=== PATIENT | female | born 1990 | race Two or more races ===

== ENCOUNTER 2018-02-19 22:25 | Emergency (ER) | payer BC ==
[~2018-02-19] VITALS: Ht 157.5 cm; Wt 86.2 kg
[2018-02-19 22:37] VITALS: BP 146/97
[2018-02-19] MEDS ORDERED: HYDR-3164 PO (23:24)
--- NOTE | 2018-02-19 23:25 | PHYS DOC ---
Past Medical History Past Medical History: No Pertinent History Alcohol Use: None Drug Use: None Adult General Chief Complaint Chief Complaint: DENTAL PROBLEM HPI HPI Patient is a 28 year old Female who presents with patient has an upper right molar with dental caries and the pain started to get worse yesterday. She's been trying to take ibuprofen and the pain is still 10 out of 10. States it is radiating up into her ear. She states she has no set tenderness. No known drug allergies. Review of Systems Review of Systems Constitutional: Denies fever or chills [] Eyes: Denies change in visual acuity, redness, or eye pain [] HENT: Right upper dental caries. Denies nasal congestion or sore throat [] Respiratory: Denies cough or shortness of breath [] Cardiovascular: No additional information not addressed in HPI [] GI: Denies abdominal pain, nausea, vomiting, bloody stools or diarrhea [] : Denies dysuria or hematuria [] Musculoskeletal: Denies back pain or joint pain [] Integument: Denies rash or skin lesions [] Neurologic: Denies headache, focal weakness or sensory changes [] Endocrine: Denies polyuria or polydipsia [] All other systems were reviewed and found to be within normal limits, except as documented in this note. Allergies Allergies Allergies Coded Allergies Type Severity Reaction Last Updated Verified No Known Drug Allergies 02/19/18 No Physical Exam Physical Exam Constitutional: Well developed, well nourished, no acute distress, non-toxic appearance. [] HENT: Right upper dental caries with pain. Normocephalic, atraumatic, bilateral external ears normal, oropharynx moist, no oral exudates, nose normal. [] Eyes: PERRLA, EOMI, conjunctiva normal, no discharge. [] Neck: Normal range of motion, no tenderness, supple, no stridor. [] Cardiovascular:Heart rate regular rhythm, no murmur [] Lungs & Thorax: Bilateral breath sounds clear to auscultation [] Abdomen: Bowel sounds normal, soft, no tenderness, no masses, no pulsatile masses. [] Skin: Warm, dry, no erythema, no rash. [] Back: No tenderness, no CVA tenderness. [] Extremities: No tenderness, no cyanosis, no clubbing, ROM intact, no edema. [] Neurologic: Alert and oriented X 3, normal motor function, normal sensory function, no focal deficits noted. [] Psychologic: Affect normal, judgement normal, mood normal. [] Current Patient Data Vital Signs Vital Signs Date Time Temp Pulse Resp B/P (MAP) Pulse Ox O2 Delivery O2 Flow Rate FiO2 02/19/18 22:37 97.4 73 20 146/97 (113) 98 Room Air 97.4 EKG EKG [] Radiology/Procedures Radiology/Procedures [] Course & Med Decision Making Course & Med Decision Making Patient is a 28 year old Female who presents with patient has an upper right molar with dental caries and the pain started to get worse yesterday. She's been trying to take ibuprofen and the pain is still 10 out of 10. States it is radiating up into her ear. She states she has no set tenderness. No known drug allergies. Alert and oriented. There is no facial swelling or abscess seen or gum swelling or redness. Patient does have 2-3 dental caries in her upper back molars. Patient be given resource list for dentists and upper chest for [place]. Patient so she didn't continue taking ibuprofen [place]. Patient is agreeable to this plan. Patient is afebrile. [] Dragon Disclaimer Dragon Disclaimer This electronic medical record was generated, in whole or in part, using a voice recognition dictation system. Departure Departure Impression: Primary Impression: Dental caries Disposition: 01 HOME, SELF-CARE Condition: STABLE Referrals: DONOVAN WEISS (PCP) Patient Instructions: Dental Caries, Dental Pain Additional Instructions: Call dentist in the morning. Take medications as prescribed. Scripts Hydrocodone/Apap 5-325 (NORCO 5-325 TABLET) 1 Each Tablet 1 TAB PO PRN Q6HRS PRN for PAIN, #10 TAB 0 Refills Prov: BERNA MARIN APRN 02/19/18 BERNA MARIN APRN Feb 19, 2018 23:25
== END 2018-02-19 23:38 | disposition home or self-care (01) ==
LOC: ER 22:25
DX: K02.9 Dental caries, unspecified (principal)
CPT/HCPCS: 99283

== ENCOUNTER 2018-08-10 20:59 | Emergency (ER) | payer BC, SELFPAY ==
[~2018-08-10] VITALS: Ht 157.5 cm; Wt 81.6 kg
[~2018-08-10 20:59] MED LIST: HYDR-3164 PO
[2018-08-10] MEDS ORDERED: AMOX1TAB61 PO (21:59)
[2018-08-10] MEDS ORDERED: AMOXICILLIN/K CLAV 875/125MG TABLET. PO ONE (22:00)
[2018-08-10] MEDS ORDERED: KETOROLAC 30 MG/ML VIAL. IM ONE (22:00)
[2018-08-10] MEDS ORDERED: BUTALB/APAP/CAFEIN 50/325/40MG TABLET. PO ONE (22:00)
--- NOTE | 2018-08-10 22:00 | PHYS DOC ---
Past Medical History Past Medical History: No Pertinent History Alcohol Use: None Drug Use: None Adult General Chief Complaint Chief Complaint: HEADACHE HPI HPI Patient is a 28 year old female who presents for Left jaw pain, and headache. The patient states that she has associated symptoms of light sensitivity, and noise sensitivity. She gets almost daily headaches and takes ibuprofen at home. Has never been officially diagnosed with a migraine. Location of the headache is the L frontal region of the head. Rates her pain as 7/10 with a character of throbbing. Review of Systems Review of Systems Constitutional: Denies fever or chills [] Eyes: Denies change in visual acuity, redness, or eye pain [] HENT: Denies nasal congestion or sore throat but has dental pain and left jaw pain. Respiratory: Denies cough or shortness of breath [] Cardiovascular: No additional information not addressed in HPI [] GI: Denies abdominal pain, nausea, vomiting, bloody stools or diarrhea [] : Denies dysuria or hematuria [] Musculoskeletal: Denies back pain or joint pain [] Integument: Denies rash or skin lesions [] Neurologic: Reports headache denies focal weakness or sensory changes [] Endocrine: Denies polyuria or polydipsia [] Complete systems were reviewed and found to be within normal limits, except as documented in this note. Current Medications Current Medications Current Medications Medications (Trade) Dose Ordered Sig/Reny Start Time Stop Time Status Last Admin Dose Admin Acetaminophen/ Butalbital/ Caffeine (Fioricet) 1 tab 1X STAT 08/10/18 21:45 08/10/18 21:46 UNV Ketorolac Tromethamine (Toradol 30mg Vial) 30 mg 1X ONCE 08/10/18 21:45 08/10/18 21:46 UNV Allergies Allergies Allergies Coded Allergies Type Severity Reaction Last Updated Verified No Known Drug Allergies 02/19/18 No Physical Exam Physical Exam Constitutional: Well developed, well nourished, no acute distress, non-toxic appearance. [] HENT: Normocephalic, atraumatic, bilateral external ears normal, oropharynx moist, no oral exudates, nose normal. Tooth # 17 appears to be infected and has edema and a cavity. Eyes: PERRLA, EOMI, conjunctiva normal, no discharge. [] Neck: Normal range of motion, no tenderness, supple, no stridor. [] Cardiovascular:Heart rate regular rhythm, no murmur [] Lungs & Thorax: Bilateral breath sounds clear to auscultation [] Abdomen: Bowel sounds normal, soft, no tenderness, no masses, no pulsatile masses. [] Skin: Warm, dry, no erythema, no rash. [] Back: No tenderness, no CVA tenderness. [] Extremities: No tenderness, no cyanosis, no clubbing, ROM intact, no edema. [] Neurologic: Alert and oriented X 3, normal motor function, normal sensory function, no focal deficits noted. [] Psychologic: Affect normal, judgement normal, mood normal. [] Current Patient Data Vital Signs Vital Signs Date Time Temp Pulse Resp B/P (MAP) Pulse Ox O2 Delivery O2 Flow Rate FiO2 08/10/18 21:20 98.7 82 16 120/69 (86) 99 Room Air 98.7 EKG EKG [] Radiology/Procedures Radiology/Procedures [] Course & Med Decision Making Course & Med Decision Making Pertinent Labs and Imaging studies reviewed. (See chart for details) Discussed symptoms with patient. Appears to have a dental abscess that has caused the left jaw pain and spurred on the headache. Will give Toradol, and Fioricet for headache. Will give Augmentin for abscess. Patient is agreeable to plan of care. Will d/c home with Fioricet (Paper prescription and Augmentin). Dragon Disclaimer Dragon Disclaimer This electronic medical record was generated, in whole or in part, using a voice recognition dictation system. Departure Departure Impression: Primary Impression: Dental abscess Additional Impression: Headache Referrals: NO PCP (PCP) Patient Instructions: Dental Abscess Additional Instructions: Follow up with a dentist this week. Take all of antibiotics. Take Fioricet as needed for headache. Return to ER if symptoms worsen. The [facility] website is at the following URL: [email or web address] Scripts Amoxicillin/Potassium Clav (AUGMENTIN 875-125 TABLET) 1 Each Tablet 1 TAB PO BID for 7 Days, #14 TAB Prov: KABAANGELA APRN 08/10/18 Problem Qualifiers Additional Impression: Headache Headache type: unspecified Headache chronicity pattern: acute headache Intractability: not intractable Qualified Codes: R51 - Headache ANGELA KABA APRN August 10, 2018 22:00
[2018-08-10 22:23] VITALS: BP 125/71
== END 2018-08-10 22:29 | disposition home or self-care (01) ==
LOC: ER 20:59
DX: K04.7 Periapical abscess without sinus (principal); R51 Headache
CPT/HCPCS: 96372; 99283; J1885

== ENCOUNTER 2018-12-18 08:27 | Emergency (ER) | payer SELFPAY ==
[~2018-12-18] VITALS: Ht 157.5 cm; Wt 78.9 kg
[~2018-12-18 08:27] MED LIST changes: +AMOX1TAB61 PO
[2018-12-18 08:30] VITALS: BP 145/66
--- NOTE | 2018-12-18 09:26 | PHYS DOC ---
Past Medical History Past Medical History: No Pertinent History, Other Additional Past Medical Histor: BAD TEETH Past Surgical History: No Surgical History Alcohol Use: None Drug Use: None Adult General Chief Complaint Chief Complaint: DENTAL PROBLEM HPI HPI Patient is a 28 year old male that presents to the ER stating she's had right lower tooth teeth pain has been ongoing for 3 days. Patient states she has not yet made an appointment with a dentist. The patient denies any fever or chills. She states she's been taking 800 mg of ibuprofen at home and that she still in pain. Rates her pain as 6 out of 10 in severity and sharp. Review of Systems Review of Systems Constitutional: Denies fever or chills [] Eyes: Denies change in visual acuity, redness, or eye pain [] HENT: Reports dental pain. Denies nasal congestion or sore throat [] Respiratory: Denies cough or shortness of breath [] Cardiovascular: No additional information not addressed in HPI [] GI: Denies abdominal pain, nausea, vomiting, bloody stools or diarrhea [] : Denies dysuria or hematuria [] Musculoskeletal: Denies back pain or joint pain [] Integument: Denies rash or skin lesions [] Neurologic: Denies headache, focal weakness or sensory changes [] Endocrine: Denies polyuria or polydipsia [] Complete systems were reviewed and found to be within normal limits, except as documented in this note. Allergies Allergies Allergies Coded Allergies Type Severity Reaction Last Updated Verified No Known Drug Allergies 02/19/18 No Physical Exam Physical Exam Constitutional: Well developed, well nourished, no acute distress, non-toxic appearance. [] HENT: Normocephalic, atraumatic, bilateral external ears normal, oropharynx moist, no oral exudates, nose normal. cracked tooth at # 32. Eyes: PERRLA, EOMI, conjunctiva normal, no discharge. [] Neck: Normal range of motion, no tenderness, supple, no stridor. [] Cardiovascular:Heart rate regular rhythm, no murmur [] Lungs & Thorax: Bilateral breath sounds clear to auscultation [] Abdomen: Bowel sounds normal, soft, no tenderness, no masses, no pulsatile masses. [] Skin: Warm, dry, no erythema, no rash. [] Back: No tenderness, no CVA tenderness. [] Extremities: No tenderness, no cyanosis, no clubbing, ROM intact, no edema. [] Neurologic: Alert and oriented X 3, normal motor function, normal sensory function, no focal deficits noted. [] Psychologic: Affect normal, judgement normal, mood normal. [] Current Patient Data Vital Signs Vital Signs Date Time Temp Pulse Resp B/P (MAP) Pulse Ox O2 Delivery O2 Flow Rate FiO2 12/18/18 08:30 98.6 77 20 145/66 (92) 98 Room Air 98.6 EKG EKG [] Radiology/Procedures Radiology/Procedures [] Course & Med Decision Making Course & Med Decision Making Pertinent Labs and Imaging studies reviewed. (See chart for details) A medical screening exam was performed on this patient and the patient does not appear to be having a medical emergency. Her symptoms are not of sufficient severity and within reasonable medical probability it is unlikely the absence of immediate medical attention would result in placing the health of the individual (or, with respect to a woman, the health of the woman or her unborn child) in serious jeopardy, serious impairment to bodily functions, or serious dysfunction of any bodily organ or part. If , the patient is not in labor Dragon Disclaimer Dragon Disclaimer This electronic medical record was generated, in whole or in part, using a voice recognition dictation system. Departure Departure Impression: Primary Impression: Encounter for medical screening examination Disposition: HOME, SELF-CARE Condition: STABLE Referrals: NO PCP (PCP) ANGELA KABA APRN Dec 18, 2018 09:26
== END 2018-12-18 09:35 | disposition home or self-care (01) ==
LOC: ER 08:27
DX: K08.89 Other specified disorders of teeth and supporting structures (principal)
CPT/HCPCS: 99281

== ENCOUNTER 2019-02-15 20:19 | Emergency (ER) | payer SELFPAY ==
[~2019-02-15] VITALS: Ht 157.5 cm; Wt 79.4 kg
[2019-02-15] MEDS ORDERED: PENICILLIN G BENZATHINE LA 2,400,000 UNIT/4 ML DISP.SYRIN. IM ONE (20:45)
[2019-02-15 20:49] VITALS: BP 138/105
--- NOTE | 2019-02-15 20:51 | PHYS DOC ---
Past Medical History Past Medical History: No Pertinent History, Other Additional Past Medical Histor: BAD TEETH Past Surgical History: No Surgical History Alcohol Use: None Drug Use: None Adult General Chief Complaint Chief Complaint: SORE THROAT [facility] HPI 29-year-old female presents to the emergency Department with complaints of sore throat, difficulty/painful swallowing, chills. She denies any nausea or vomiting. Symptoms started yesterday however worsening today. She denies sick contacts. States she's been taking [id number] medications without relief. Patient denies headache or visual changes All other ROS negative unless documented in HPI Review of Systems Review of Systems See Above Allergies Allergies Allergies Coded Allergies Type Severity Reaction Last Updated Verified No Known Drug Allergies 02/19/18 No Physical Exam Physical Exam See Above Constitutional: Well developed, well nourished, no acute distress, non-toxic appearance. [] HENT: Normocephalic, atraumatic, bilateral external ears normal, oropharynx moist, large erythematous, exudative, nose normal. [] Eyes: PERRLA, EOMI, conjunctiva normal, no discharge. [] Neck: With adenopathy with submandibular and redness Cardiovascular:Heart rate regular rhythm, no murmur [] Lungs & Thorax: Bilateral breath sounds clear to auscultation [] Abdomen: Bowel sounds normal, soft, no tenderness, no masses, no pulsatile masses. [] Skin: Warm, dry, no erythema, no rash. [] Neurologic: Alert and oriented X 3, no focal deficits noted. [] Psychologic: Affect normal, judgement normal, mood normal. [] EKG EKG [] Radiology/Procedures Radiology/Procedures [] Course & Med Decision Making Course & Med Decision Making Pertinent Labs and Imaging studies reviewed. (See chart for details) []29-year-old female presents to the emergency Department with complaints of sore throat, difficulty/painful swallowing, chills. She denies any nausea or vomiting. Symptoms started yesterday however worsening today. She denies sick contacts. States she's been taking [id number] medications without relief. Clinical exam reveals evidence of pharyngitis, likely strep in nature given appearance Discussed po abx vs Bicillin-LA Will plan IM shot and dc home Return precautions provided Dragon Disclaimer Dragon Disclaimer This electronic medical record was generated, in whole or in part, using a voice recognition dictation system. Departure Departure Impression: Primary Impression: Strep pharyngitis Disposition: 01 HOME, SELF-CARE Condition: STABLE Referrals: NO PCP (PCP) Patient Instructions: Strep Throat, [id number] Additional Instructions: Recommend follow up with PCP 3 - 5 days Return to the ER with worsening symptoms, intractable pain, fever, altered mental status Tylenol/Motrin as needed for pain IM Bicillin given in ER for strep throat DEEPA CLARKE MD Feb 15, 2019 20:51
== END 2019-02-15 21:05 | disposition home or self-care (01) ==
LOC: ER 20:19
DX: J02.0 Streptococcal pharyngitis (principal); B95.5 Unspecified streptococcus as the cause of diseases classified elsewhere
CPT/HCPCS: 96372; 99283; J0561